=== PATIENT | female | born 1985 | race Caucasian/White ===

== ENCOUNTER 2017-12-25 06:00 | Inpatient (IN) ==
[2017-12-25] MEDS ORDERED: Ringers Solution, Lactated 1,000 ML ONE (06:28)
[2017-12-25] MEDS ORDERED: *HR* Nalbuphine 10 MG/ML AMPUL IVP PRN (06:43)
[2017-12-25] MEDS ORDERED: Ondansetron 4 MG/2 ML VIAL IVP PRN (06:43)
[2017-12-25] MEDS ORDERED: Famotidine 20 MG/2 ML VIAL IVP PRN (06:43)
[2017-12-25] MEDS ORDERED: Metoclopramide 10 MG/2 ML VIAL IVP PRN (06:43)
[2017-12-25] MEDS ORDERED: Naloxone 0.4 MG/ML INJ IVP PRN (06:43)
[2017-12-25] MEDS ORDERED: Ringers Solution, Lactated 1,000 ML IVC SCH (06:45)
[2017-12-25] MEDS ORDERED: miSOPROStol 25 MCG TABLET VG PRN (07:29)
--- NOTE | 2017-12-25 07:48 | OB/GYN History & Physical ---
Date of Encounter: 12/25/17 Time of Encounter: 07:46 Assessment and Plan (1) 39 weeks gestation of Current visit: Yes Status: Acute History of Present Illness Chief complaint: induction HPI: Ms. Mariano is a 32 year old female 1 who presented to labor and delivery for induction of labor at 39-1/2 weeks. Informed consent has been obtained. This patient understands induction completely. She understands risks of section. She does wish to proceed. She has no drug allergies. She is currently on vitamins. She has no chronic medical conditions. Surgical history is negative. She has no history of abnormal Pap smears, STDs or pelvic infections. She has no history of abnormal breast findings. Socially she denies tobacco, alcohol, illicit drug use. Family history is noncontributory. Past Med Surg Social Fam HX - Past Medical History Medical history: no medical history Psychiatric history: ADHD - Past Surgical History Surgical History: cholecystectomy Additional surgical history: wisdom teeth surgery - Social History Smoking Status: Former smoker Alcohol use: none Drug use: none - Family History Mother Family Member Ethnicity: Non- Living Status: Still Living Hx Family Cardiac Disorders: No Hx Family Respiratory Disorders: No Hx Family Cancer: No Hx Family GI Disorders: No Hx Family Genitourinary Disorders: No Hx Family Endocrine Disorder: No Hx Family Musculoskeletal Disorders: No Hx Family Neuromuscular Disorders: No Hx Family Neurologic Disorders: No Hx Family HEENT Disorders: No Hx Family Autoimmune Disorders: No Hx Family Reproductive Disorders: No Hx Family Psychosocial Disorders: No Hx Family Medical Disorders: No Obstetrical History - Pregnancies : 1 Medications and Allergies Vits96/Iron Fum/Folic [ Tablet] 1 tab PO DAILY 12/25/17 [History] Allergy/AdvReac Type Severity Reaction Status Date / Time No Known Allergies Allergy Verified 12/25/17 07:04 Review of System OB All systems PM: reviewed and no additional remarkable complaints except as stated Exam - Constitutional Constitutional: well developed, well nourished, no acute distress, average body habitus - HEENT HEENT: EOMI, PERRL - Neck Neck exam: normal inspection - Lungs Respiratory exam: CTAB - Cardiovascular Cardiovascular exam: RRR - Abdomen Abdomen: Present: gravid - Extremities Extremities exam: full ROM - Cervix Dilation: 1 Effacement: 40 Station: -2 - Uterus Uterus exam: Present: normal size Results All other labs normal. - VTE Reasons for not Prescribing Prophylaxis: Treatment not Indicated - Low risk for VTE
[2017-12-25] MEDS ORDERED: EPHEDrine 50 MG/ML VIAL IVP PRN (07:53)
[2017-12-25] MEDS ORDERED: Epidural Premix (fent/bupiv) 110 ML EP SCH (08:00)
[2017-12-25 08:05] LABS: Mean Platelet Volume 9.6 fL (9.4-12.4)
[2017-12-25 08:06] LABS: Basophils % 0.2 %; Hemoglobin 14.1 g/dL (11.5-15.4); Immature Granulocytes % 0.8 % (0-4)
[2017-12-25 08:07] LABS: Eosinophils # 0.1 K/mcL (0.0-0.6); Hematocrit 41.8 % (35.3-44.9); Lymphocytes # 1.8 K/mcL (0.6-4.6); Lymphocytes % 17.5 %; Mean Corpuscular HGB Conc 33.7 g/dL (31.6-35.5); Mean Corpuscular Hemoglobin 29.7 pg (28.0-33.3); Mean Platelet Volume 10.5 fL (9.4-12.4); Monocytes # 0.9 K/mcL (0.0-1.3); Monocytes % 8.8 %; Neutrophils # 7.5 K/mcL (1.6-8.9); Red Blood Count 4.75 M/mcL (3.82-4.97); Segmented Neutrophils % 71.7 %
[2017-12-25 08:33] LABS: Amphetamine Screen,Urine Negative ng/mL (Cutoff=1000); Barbiturate Screen,Urine Negative ng/mL (Cutoff=200)
[2017-12-25 08:34] LABS: Benzodiazepines Screen,Urine Negative ng/mL (Cutoff=300); Cannabinoid Screen,Urine Negative ng/mL (Cutoff = 50); Cocaine Screen,Urine Negative ng/mL (Cutoff= 300); Opiate Screen,Urine Negative ng/mL (Cutoff=300); Phencyclidine Screen,Urine Negative ng/mL (Cutoff=25)
--- NOTE | 2017-12-25 08:46 | Anesthesia Evaluation PreOp ---
Date of Encounter: 12/25/17 Time of Encounter: 08:44 - Past History Planned Operation: JASON Cardiac History: Denies any Significant Hx Pulmonary History: Denies Any Significant HX CALL CENTER DIRECTOR History: Denies Any Significant HX Other Medical History: Denies Any Significant HX Anesthesia History: No Prior Anesthetic Complications, Past Anesthesia (Lap Parul) Alcohol Use: none Drug use: none Medications and Allergies Vits96/Iron Fum/Folic [ Tablet] 1 tab PO DAILY 12/25/17 [History] Allergy/AdvReac Type Severity Reaction Status Date / Time No Known Allergies Allergy Verified 12/25/17 07:04 - Meds/Allergy Pre-op Review Medications Reviewed: Yes Allergies Reviewed: Yes Beta Blockers on Current Med List: No Anesthesia Results - Labs 12/25/17 07:47 Anesthesia Exam O2 Sat Height 1.7 m Weight 109.2 kg NPO (# of Hours): 6 Pain Scale: 1 Pain Scale Used: Numeric (1 - 10) - HEENT Pupil (Motor): Pupils equal Mallampati: II Teeth: Normal Oral Opening: Greater than 3 - CALL CENTER DIRECTOR LOC: Oriented CALL CENTER DIRECTOR Motor: Normal RUE, Normal LUE, Normal RLE, Normal LLE, Normal Face CALL CENTER DIRECTOR Sensory: Normal: RUE, LUE, RLE, LLE, Face - Cardiac Rhythm: Regular Murmur: None JVD: No Carotid Bruit: No - Pulmonary Breath Sounds: bilateral Clear Respiratory Effort: Symmetrical Anesthesia Assess/Plan ASA Score: 2 Level of consciousness: Cooperative, Oriented Anesthetic Plan: General (plan b), Epidural (plan a) Autologous Blood: Yes Monitoring Plan: Standard Monitors Recovery Plan: PACU
--- NOTE | 2017-12-25 12:43 | OB/GYN Progress Note ---
Date of Encounter: 12/25/17 Time of Encounter: 12:41 - Assessment and Plan (1) 39 weeks gestation of Current Visit: Yes Status: Acute Subjective - Subjective Principal diagnosis: term induction Interval history: 32 yo female at 39+ weeks here for induction of labor. Cole induction started using 60 cc sterile water. Pt tolerated procedure well. Objective - Vital Signs Vital Signs: Intake and Output 12/24/17 12/25/17 12/25/17 23:59 07:59 15:59 Other: Weight 109.2 kg Patient Weight 12/25/17 23:59 Weight 109.2 kg - Exam FHR: category 1 Abdomen: Present: normal appearance Uterus: Present: normal Cervical dilation: 1 cm Cervix effacement: 50 station: -2 - Labs Labs: Abnormal lab results Plt Count ,Citrate 139 K/mcL (140-400) L 12/25/17 07:47 Immature Plt Fraction 9.0 % (1.1-6.1) H 12/25/17 07:47
[2017-12-25] MEDS ORDERED: Lidocaine 1% 20 ML MDV ONE (13:54)
--- NOTE | 2017-12-25 14:23 | Anesthesia Procedures ---
Addendum entered and electronically signed by Godwin Perez CRNA 12/26/17 02:32: Pt proceeded to c/s at 0221. See anes record. Original Note: Date of Encounter: 12/25/17 Time of Encounter: 14:21 Procedures: Anesthesia - Epidural/Spinal Patient ID/Chart reviewed: Yes Patient examined: Yes OB Eval: Gestational age: 39 OB Eval: : 1 OB Eval: Hx Para: 0 OB Eval: Dilated at (cm): 4 OB Eval: Contractions: Non-stressed pattern Consent Obtained: Yes Supplemental Oxygen: None/Room Air Site Prep: Aseptic Technique, Sterile prep and drape, Povidone-Iodine 1% Patient position: upright Local Anesthetic: Lidocaine 1% Amount of Local Anesthetic used: 3 Touhy Needle Gauge: 18 Touhy Needle Depth (cm): 7 Catheter Depth at Skin (cm): 20 Test Dose (1.5% Lido + Epi): Volume given (mls): 5 Test Dose Result: Negative Loading Dose: Other: 10ml of epidural pharm bag premix solution Loading Dose Administered: Thru Catheter Infusion Med: 0.125% Bupivacaine w/ 2 mcg/ml Fentanyl Infusion Rate (mls/hr): 16 ([id number]) Catheter Secured in Place: Tegaderm, Tape Interspace Used: L4-L5 Loss of Resistance (BENJAMÍN): Yes Blood: No CSF: No Paresthesia: No Procedure: pt tolerated procedure well. no complications. vss. fhr stable. see nursing notes for complete vitals.
[2017-12-25] MEDS ORDERED: Oxytocin 20 units/ LR 1000 mL 20 UNIT/1,000 ML BAG IVC ONE (16:53)
[2017-12-25] MEDS ORDERED: Oxytocin 20 units/ LR 1000 mL 20 UNIT/1,000 ML BAG IVC SCH (17:00)
[2017-12-25] MEDS ORDERED: Ondansetron 4 MG/2 ML VIAL ONE (19:54)
[2017-12-25] MEDS ORDERED: *HR* Oxytocin 10 UNIT/ML VIAL IM ONE (19:54)
[2017-12-25] MEDS ORDERED: Chloroprocaine/PF 20 ML VIAL INFILT ONE (19:54)
[2017-12-25] MEDS ORDERED: *HR* Morphine Sulfate/PF 10 MG/10 ML AMPUL ONE (19:55)
--- NOTE | 2017-12-25 20:00 | Event Note ---
Date of Encounter: 12/25/17 Time of Encounter: 19:57 I was called in room by nursing to talk to patient. Last cervical check patient was found to be 6cm, 70% effaced and a -1 station with the umbilical cord still in the middle of the cervix. Membranes are intact. The umbilical cord has not moved. Patient is very concerned about this. Nursing has been very good about rotating patient using the peanut ball, and doing everything possible to bring the 's head down to encourage the umbilical cord to move away from the cervix. This does not seem to be doing this. Patient had multiple questions asking if her membrane breaks in the cord comes down what happens. We had a long discussion about this. Patient does understand this. She does not wish to continue. She is not willing to take this risk. She does not wish an emergency . At this point she wishes to proceed with a section now. She wishes the Pitocin turned off. She does not wish to wait and be hopeful that the umbilical cord we will move away. Her family all agree with this. Because of this we will proceed with a section. Anesthesia is here. Tracing has been nice and reactive. Baby is doing well. Category 1 tracing.
[2017-12-25] MEDS ORDERED: Water for inj. (sterile) 20 ML IV ONE (20:11)
[2017-12-25] MEDS ORDERED: Water for inj. (sterile) 10 ML IV ONE (20:12)
[2017-12-25] MEDS ORDERED: Lidocaine/EPI 1:200k 2% PF 20 ML VIAL ONE (20:13)
--- NOTE | 2017-12-25 20:25 | Event Note ---
Date of Encounter: 12/25/17 Time of Encounter: 20:24 Patient was taken to the operating room to prepare for surgery. Once patient was on the table they are getting ready to prepare for prepping her. Patient's water broke spontaneously. Sterile vaginal exam was performed. Has come down. Cord is no longer there. I gave the patient the option to go back to the room and try for vaginal delivery. After long discussion she is elected to try for vaginal delivery. She understands that she could still end up with a section, but we cannot tell what the future holds. She would like to try.
--- NOTE | 2017-12-25 20:39 | Anesthesia Progress Note ---
Date of Encounter: 12/25/17 Time of Encounter: 20:37 Anesthesia Note - Note Note: 12/25/17 20:37 Called for primary section d/t cord presentation (see Dr. Torres's note). Patient was dosed with 20ml 3% Nesacaine and 10ml 2% lidocaine with epi. Adequate response. In OR, during prep, cord no longer present. Patient taken back to L&D room, stable and vss. FHR stable. Pt back on monitor.
[2017-12-26] MEDS ORDERED: *HR* Ropivacaine/PF 0.2% 20 ML VIAL ONE (01:14)
[2017-12-26] MEDS ORDERED: *HR* FentaNYL (PF) 100 MCG/2 ML VIAL ONE (01:14)
--- NOTE | 2017-12-26 01:23 | Anesthesia Progress Note ---
Date of Encounter: 12/26/17 Time of Encounter: 01:21 Anesthesia Note - Note Note: 12/26/17 01:21 Called for increased pain during contractions. Pt states feeling back pain and pressure during contractions. Bolus given of 4ml 2%lidocaine with epi, 4ml of 0.2% ropivacaine, 100mcg fentanyl, after negative asp, in divided doses. Pt tolerated well. Vss, fhr stable. 12/26/17 01:23
[2017-12-26] MEDS ORDERED: Chloroprocaine/PF 20 ML VIAL INFILT ONE (01:39)
[2017-12-26] MEDS ORDERED: Water for inj. (sterile) 20 ML IV ONE (02:10)
[2017-12-26] MEDS ORDERED: Ringers Solution, Lactated 1,000 ML ONE (02:23)
[2017-12-26] MEDS ORDERED: Ondansetron 4 MG/2 ML VIAL ONE (02:34)
[2017-12-26] MEDS ORDERED: *HR* HYDROmorphone (PF) 1 MG/ML SYRINGE IVP PRN (02:36)
[2017-12-26] MEDS ORDERED: Acetaminophen IV 1,000 MG/100 ML INFUS..BTL IVPB ONE (02:36)
[2017-12-26] MEDS ORDERED: *HR* OxyCODONE/APAP 5/325 TABLET PO PRN (02:36)
[2017-12-26] MEDS ORDERED: Naloxone 0.4 MG/ML INJ IVP PRN (02:36)
[2017-12-26] MEDS ORDERED: *HR* Promethazine 25 MG/ML VIAL IVP PRN (02:36)
[2017-12-26] MEDS ORDERED: Ondansetron 4 MG/2 ML VIAL IVP ONE (02:36)
[2017-12-26] MEDS ORDERED: Ringers Solution, Lactated 1,000 ML IVC SCH (02:45)
--- NOTE | 2017-12-26 03:11 | OB/GYN Procedure Note ---
Section - Date of procedure: 12/26/17 Preop diagnosis: arrest of descent, arrest of dilation, other Post-op diagnosis: same Procedure: primary low transverse Surgeon: Alejo Lo Blood Loss: 500 Was there an assistant loan processor present: Yes Rfid Specialist: Nancy Pierce Correspondence Renew Clerk: Godwin Perez Anesthesia Type: Epidural section complications: none Disposition: Post floor Specimens: Cord blood - (s) A Infant Delivery Date: 12/26/17 Delivery Time: 02:39 Presentation: vertex Position: OA Route of delivery: other Gender: Male Viability: Viable Pounds: 7 Ounces: 9 Gram Weight: 3.425 kg at 1 minute: 8 at 5 minutes: 9 Specimens collected: cord blood Placenta: uterine exploration Cord: nuchal cord - Narrative Narrative: Patient made no change. heart rate is in the 120s and very flat with minimal variability. Patient at this point was feeling contractions wishing to have primary section. The risks of surgery were discussed in great detail she understands completely. She did not wish a vaginal delivery. She wished to proceed. Procedure patient was taken to the operating room her epidural was bolused. She was then prepped and draped in usual sterile fashion. Once was assured of adequate analgesia, a Pfannenstiel incision was made. Was carried sharply through the subtenons fatty tissue until the fascial layers reached. The fascia was then nicked in the midline incised bilaterally with Rivera scissors. It was then dissected vertically for adequate exposure. The rectus pelvis was creatures and separate the midline. The peritoneum sharply entered dissected vertically. A bladder blade was placed at the inferior margin incision. Bladder flaps and Doppler difficulty. A bladder blade was placed over the bladder flap and a low transverse incision was then made lower segment. Fluid was noted be clear. The incision was bluntly extended. The incision h ead was then delivered without difficulty. There was a tight nuchal cord 2 which was reduced. The rest the was then delivered. The cried immediately. Cord clamped and cut. Infant was then passed to nursing in attendance. Cord blood was obtained. The placenta was delivered via uterine massage and lavage. The uterus was then delivered. The uterus underwent a uterine lavage. The incision was then closed the Vicryl suture running locking fashion. There was excellent hemostasis. The uterus was replaced the pelvic cavity pelvic. The pelvic cavity was then rinsed thoroughly with sterile water 2. C no bleeding, the procedure was terminated. Sponge needle and isthmic ounce correct 2. The fascia was then closed the Vicryl suture running nonlocking fashion was has assured there is no bleeding. Suprafascial region was rinsed thoroughly with sterile water testing all bleeders cauterized. The skin was closed nidhi. Patient tolerated the procedure well.
[2017-12-26] MEDS ORDERED: Oxytocin 20 units/ LR 1000 mL 20 UNIT/1,000 ML BAG IVC SCH (05:55)
[2017-12-26] MEDS ORDERED: Sennosides 8.6 MG TABLET PO PRN (05:55)
[2017-12-26] MEDS ORDERED: Metoclopramide 10 MG/2 ML VIAL IVP PRN (05:55)
[2017-12-26] MEDS ORDERED: Ondansetron 4 MG/2 ML VIAL IVP PRN (05:55)
[2017-12-26] MEDS ORDERED: *HR* Morphine 2 MG/ML SYRINGE IVP PRN (06:39)
--- NOTE | 2017-12-26 06:39 | Anesthesia Evaluation Post Op ---
Date of Encounter: 12/26/17 Time of Encounter: 06:38 - Vital Signs Vital Signs: Vital Signs/O2 Sat/Glucose, Most Current Temp Pulse Resp BP Pulse Ox 12/26/17 06:20 98.0 F 98 16 120/81 95 12/26/17 05:45 98.8 F 109 14 129/90 100 - Lungs Lungs: Clear Ascult./Percussion - Airway Airway: Non-obstructed - Cardiovascular Regular Rate, Baseline Rhythm - Mental Status Mental Status: Alert & Oriented, Answers Appropriately - Pain Pain Scale: 4 Pain Scale used: Numeric (1 - 10) - Nausea Vomiting Nausea Vomiting: Not Present - Hydration Hydration: Tolerates oral liquids, Cole catheter - Discharge PostOp Status: Transfer Patient to floor
[2017-12-26] MEDS: Prenatal Vit/FA 1 EACH TABLET PO SCH (07:43)
[2017-12-26] MEDS: ceFAZolin 1,000 MG in Water for inj. (sterile) 20 ML 10 ML IVP SCH ×2 (10:58→20:24)
[2017-12-26] MEDS ORDERED: Methylergonovine 0.2 MG/ML AMPUL IM ONE (12:13)
[2017-12-26] MEDS: *HR* OxyCODONE/APAP 5/325 TABLET PO PRN ×2 (15:15→20:23)
[2017-12-26] MEDS: Ibuprofen 600 MG TABLET PO PRN (20:23)
[2017-12-27] MEDS: *HR* OxyCODONE/APAP 5/325 TABLET PO PRN ×4 (03:05→20:26)
[2017-12-27] MEDS: ceFAZolin 1,000 MG in Water for inj. (sterile) 20 ML 10 ML IVP SCH (03:22)
[2017-12-27] MEDS ORDERED: ceFAZolin 1,000 MG in Water for inj. (sterile) 20 ML 10 ML IVP SCH (04:00)
[2017-12-27 06:17] LABS: Eosinophils % 0.4 %
[2017-12-27 06:19] LABS: Basophils % 0.1 %; Immature Platelets 6.9 % (1.1-6.1)
[2017-12-27 06:27] LABS: Eosinophils # 0.1 K/mcL (0.0-0.6); Hemoglobin 13.2 g/dL (11.5-15.4); Immature Granulocytes % 0.6 % (0-4); Lymphocytes # 1.2 K/mcL (0.6-4.6); Lymphocytes % 8.4 %; Mean Corpuscular HGB Conc 34.7 g/dL (31.6-35.5); Mean Corpuscular Hemoglobin 29.9 pg (28.0-33.3); Mean Platelet Volume 10.5 fL (9.4-12.4); Monocytes # 1.5 K/mcL (0.0-1.3); Monocytes % 10.3 %; Platelet Count 125 K/mcL (140-400); Red Blood Count 4.42 M/mcL (3.82-4.97); Red Cell Distribution Width 13.3 % (11.5-14.5); Segmented Neutrophils % 80.2 %
[2017-12-27 06:28] LABS: Neutrophils # 11.5 K/mcL (1.6-8.9)
[2017-12-27] MEDS: Ibuprofen 600 MG TABLET PO PRN ×3 (08:06→21:02)
[2017-12-27] MEDS: Simethicone 80 MG TAB.CHEW PO PRN ×3 (08:06→20:26)
[2017-12-27] MEDS: Prenatal Vit/FA 1 EACH TABLET PO SCH (08:08)
--- NOTE | 2017-12-27 08:40 | OB/GYN Progress Note ---
Date of Encounter: 12/27/17 Time of Encounter: 08:38 - Assessment and Plan (1) Delivery by section using transverse incision of lower segment of uterus Current Visit: Yes Status: Acute Pt meeting POD#1 milestones. Anticipate discharge home POD#2-3. (2) Breast feeding status of mother Current Visit: Yes Status: Acute Subjective - Subjective Interval history: Pt reports some discomfort when moving around. No other complaints. Mood is good. She has not yet been able to pass flatus. Patient reports: appetite normal, voiding normally, pain well controlled, ambulating normally Staples: doing well Objective - Vital Signs Latest vital signs: Vital Signs Temp Pulse Pulse Resp BP Pulse Ox 12/27/17 07:58 98.3 F 89 14 128/89 96 12/27/17 03:30 97.9 F 89 14 113/72 95 12/27/17 00:20 98.2 F 81 16 104/69 96 12/26/17 20:24 98.9 F 98 18 132/82 96 12/26/17 16:48 99.3 F 101 14 133/97 94 12/26/17 15:20 16 12/26/17 11:50 100.1 F H 101 14 119/82 96 12/26/17 11:08 16 12/26/17 09:00 98.1 F 90 90 16 113/78 95 Intake and Output 12/26/17 12/27/17 12/27/17 23:59 07:59 15:59 Intake Total 510 / 510 Output Total 1000 / 1000 1000 / 1000 Balance -490 / -490 -990 / -990 Intake: IV Fluids Ancef 1,000 MG In Water for inj . (sterile) 10 ML @ 200 mls/hr IVP Q8HR [facility] Rx#:[id number] Oral 500 / 500 Output: Urine 1000 / 1000 1000 / 1000 Other: Meal Dinner Percent of Meal Consumed 100% Weight 100.499 kg Patient Weight 12/27/17 23:59 Weight 100.499 kg - Exam Lungs: bilateral: normal Chest: Normal S1, Normal S2 Extremities: Present: edema (mild bilaterally) Abdomen: Present: soft, distention (tympanic to percussion), tenderness (appropriately tender) Incision: Present: dressed (dressing dry and intact) Uterus: Present: firm - Labs Labs: Laboratory Results - last 24 hr 12/27/17 05:51 WBC 14.3 H RBC 4.42 Hgb 13.2 Hct 38.0 MCV 86.0 MCH 29.9 MCHC 34.7 RDW 13.3 Plt Count 125 L MPV 10.5 Immature Gran % 0.6 Seg Neutrophils % 80.2 Lymphocytes % 8.4 Monocytes % 10.3 Eosinophils % 0.4 Basophils % 0.1 Neutrophils # 11.5 H Lymphocytes # 1.2 Monocytes # 1.5 H Eosinophils # 0.1 Basophils # 0.0 Immature Plt Fraction 6.9 H
[2017-12-28] MEDS: *HR* OxyCODONE/APAP 5/325 TABLET PO PRN ×3 (00:58→14:22)
[2017-12-28] MEDS: Simethicone 80 MG TAB.CHEW PO PRN ×2 (01:00→08:40)
[2017-12-28] MEDS: Ibuprofen 600 MG TABLET PO PRN (06:45)
[2017-12-28] MEDS: Prenatal Vit/FA 1 EACH TABLET PO SCH (08:32)
[2017-12-28 09:21] VITALS: BP 130/94
--- NOTE | 2017-12-28 10:08 | Discharge Summary ---
Date of Encounter: 12/28/17 Time of Encounter: 10:04 - Discharge Diagnosis (1) Delivery by section using transverse incision of lower segment of uterus Priority: Primary Status: Acute Comments: S/P C/S Day 2 Pain is well controlled Lochia light without clots Tolerating regular diet; passing flatus Voiding without difficulty VSS Discharge home today POC per consult with Dr Mustafa (2) Breast feeding status of mother Priority: Secondary Status: Acute - Discharge Medications Prescriptions: Ibuprofen [Motrin] 600 mg PO Q6HR PRN #30 tablet PRN Reason: Cramping Docusate [Colace] 100 mg PO BID #30 capsule Ferrous Sulfate 325 mg PO DAILY #90 tablet OxyCODONE/APAP 5/325 [Percocet 5/325 MG] 1 each PO Q6H PRN 5 Days #20 tablet PRN Reason: Moderate pain 4-6 Home Medications: Vits96/Iron Fum/Folic [ Tablet] 1 tab PO DAILY 12/25/17 [History] Breast Pump [BREAST PUMP] 1 each .ROUTE AD #1 each 12/28/17 [Rx] Docusate [Colace] 100 mg PO BID #30 capsule 12/28/17 [Rx] Ferrous Sulfate 325 mg PO DAILY #90 tablet 12/28/17 [Rx] Ibuprofen [Motrin] 600 mg PO Q6HR PRN #30 tablet 12/28/17 [Rx] OxyCODONE/APAP 5/325 [Percocet 5/325 MG] 1 each PO Q6H PRN 5 Days #20 tablet 12/28/17 [Rx] Simethicone [Gas-X] 80 mg PO TID PRN tab.chew 12/28/17 [Rx] Allergies/Adverse Reactions: Allergy/AdvReac Type Severity Reaction Status Date / Time No Known Allergies Allergy Verified 12/25/17 07:04 Data Procedures and tests throughout hospitalization: Laboratory Tests 12/25/17 12/25/17 12/25/17 06:30 06:30 07:47 WBC 10.4 RBC 4.75 Hgb 14.1 Hct 41.8 MCV 88.0 MCH 29.7 MCHC 33.7 RDW 13.0 Plt Count TNP MPV 10.5 Immature Gran % 0.8 Seg Neutrophils % 71.7 Lymphocytes % 17.5 Monocytes % 8.8 Eosinophils % 1.0 Basophils % 0.2 Neutrophils # 7.5 Lymphocytes # 1.8 Monocytes # 0.9 Eosinophils # 0.1 Basophils # 0.0 Plt Count ,Citrate Immature Plt Fraction 9.0 H Urine Opiates Screen Negative Ur Barbiturates Screen Negative Ur Phencyclidine Scrn Negative Ur Amphetamines Screen Negative U Benzodiazepines Scrn Negative Urine Cocaine Screen Negative U Marijuana (THC) Screen Negative Ur Drug Screen Interp See Below Specimen Rejected Clotted 12/25/17 12/27/17 07:47 05:51 WBC 14.3 H RBC 4.42 Hgb 13.2 Hct 38.0 MCV 86.0 MCH 29.9 MCHC 34.7 RDW 13.3 Plt Count 125 L MPV 9.6 10.5 Immature Gran % 0.6 Seg Neutrophils % 80.2 Lymphocytes % 8.4 Monocytes % 10.3 Eosinophils % 0.4 Basophils % 0.1 Neutrophils # 11.5 H Lymphocytes # 1.2 Monocytes # 1.5 H Eosinophils # 0.1 Basophils # 0.0 Plt Count ,Citrate 139 L Immature Plt Fraction 6.9 H Urine Opiates Screen Ur Barbiturates Screen Ur Phencyclidine Scrn Ur Amphetamines Screen U Benzodiazepines Scrn Urine Cocaine Screen U Marijuana (THC) Screen Ur Drug Screen Interp Specimen Rejected Date of admission: 12/25/17 06:01 Primary care physician: Douglas Rose MD Discharging clinician: Lise Gaspar Anticipated date of discharge: 12/28/17 - Patient Status Disposition: Home, Self-Care Condition: Good Functional capacity at discharge: independent ambulation Overall status at discharge: patient is progressing back to baseline - Discharge Instructions Follow Up With: Douglas Rose MD [Primary Care Provider] - Alejo Dick MD [Partnered Physician] - - Diet and Activity Activity: increase activity as tolerated Diet: regular diet Hospital Course Reason for admission: IUP at term Delivery: section Episiotomy: none Laceration: none Other procedures: none complications: none Discharge diagnosis: IUP at term delivered [place] baby: male Time Attestation: Total time spent providing and/or coordinating discharge services: Time Spent: Less than 30 minutes - VTE Reasons for not Prescribing Prophylaxis: Treatment not Indicated - Low risk for VTE Documentation of Mechanical Device: Intermittent pneumatic compression device Exam - Constitutional Vitals: Temp Pulse Resp BP Pulse Ox 98.8 F 87 12 130/94 97 11/08/18 07:55 12/28/17 07:55 12/28/17 07:55 12/28/17 09:05 12/28/17 07:55 General appearance IM: cooperative, A&O X 3, pleasant - Respiratory Respiratory exam: Present: CTAB - Cardiovascular Cardiovascular exam IM: Present: RRR, +S1, +S2 - GI/Abdominal GI/Abdominal exam IM: normal bowel sounds, soft Incision: normal, dry, intact - Rectal Rectal exam: deferred - Uterine Tone: Firm Uterus Position: At Umbilicus, Midline - Extremities Exam Extremities exam IM: Present: normal inspection - Neurological Exam Neurological exam: alert, oriented X3
[2017-12-28] MEDS ORDERED: MOM Conc 10 ML UD.LIQ PO ONE (10:18)
== END 2017-12-28 14:54 | disposition home or self-care (01) | DRG 788 ==
LOC: 1NENULAB 06:01 → 1NENUOBS 12-26 05:55
PROVIDERS: ADMIT Obstetrics & Gynecology; ATTEND Obstetrics & Gynecology